=== PATIENT | female | born 1950 | race Caucasian/White ===

== ENCOUNTER 2016-12-12 22:35 | Emergency (ER) | payer MEDICAID ==
--- NOTE | 2016-12-12 23:22 | EDM.PDOC ---
[id number] 4d CHEST PAINS Time Seen by Provider: 12/12/16 23:00 Source of Information: Reports: Patient, Family History Limitations: Reports: No Limitations - History of Present Illness INITIAL COMMENTS - FREE TEXT/NARRATIVE: 66-year-old female with rheumatoid arthritis has developed a substernal chest pain over the past 12-14 hours after activity. It hurts to lay down, sit up, take a deep breath but she has no shortness of breath, nausea or vomiting or radiation of pain. She took a Naprosyn and it didn't help and then she started to worry about cardiac sources of pain and came in to be checked. Her EKG showed no acute findings. 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 (Took a naproxen which didn't help) - Related Data Allergies Allergy/AdvReac Type Severity Reaction Status Date / Time No Known Allergies Allergy Verified 07/13/15 21:58 Home Meds: Home Meds Aspirin 81 mg PO BEDTIME 07/13/15 [History] Cetirizine [ZyrTEC] 10 mg PO DAILY 07/13/15 [History] Pravastatin [Pravachol] 40 mg PO BEDTIME 07/13/15 [History] Methotrexate Sodium [Methotrexate] 7 tab PO WEEKLY 12/12/16 [History] Past Medical History Cardiovascular History: Reports: High Cholesterol Gastrointestinal History: Reports: Diverticulosis Musculoskeletal History: Reports: Arthritis, Osteoarthritis, RA - Past Surgical History Musculoskeletal Surgical History: Reports: Arthroscopic Knee, Other (See Below) Other Musculoskeletal Surgeries/Procedures:: 90 knee surgery left Social & Family History - Tobacco Use Smoking Status *Q: Never Smoker - Caffeine Use Caffeine Use: Reports: Coffee - Recreational Drug Use Recreational Drug Use: No ED ROS GENERAL - Review of Systems Review Of Systems: See Below Constitutional: Denies: Fever, Chills HEENT: Reports: No Symptoms Respiratory: Denies: Shortness of Breath, Cough Cardiovascular: Reports: Chest Pain GI/Abdominal: Denies: Abdominal Pain, Nausea, Vomiting : Reports: No Symptoms Skin: Reports: No Symptoms Psychiatric: Reports: Anxiety ED EXAM, GENERAL - Physical Exam Exam: See Below Exam Limited By: No Limitations General Appearance: Alert, Anxious Eye Exam: Bilateral Eye: Normal Inspection Neck: Normal Inspection Respiratory/Chest: No Respiratory Distress, Lungs Clear, Other (I could reproduce her pain with palpation of the sternum) Cardiovascular: Regular Rate, Rhythm Course - Vital Signs Last Recorded V/S: Last Vital Signs Temp 98.4 F 12/13/16 00:30 Pulse 74 12/13/16 00:30 Resp 16 12/13/16 00:30 BP 128/83 12/13/16 00:30 Pulse Ox 99 12/13/16 00:30 - Orders/Labs/Meds Orders: Active Orders 24 hr Category Date Time Status EKG Documentation Completion [RC] ASDIRECTED Care 12/12/16 23:18 Active Chest 2V [CR] Routine Exams 12/12/16 23:18 Taken EKG 12 Lead [EK] Routine Ther 12/12/16 23:18 Ordered Labs: Laboratory Tests 12/12/16 12/12/16 Range/Units 23:18 23:18 WBC 8.9 (4.5-11.0) K/uL RBC 3.83 (3.30-5.50) M/uL Hgb 13.1 (12.0-15.0) g/dL Hct 37.0 (36.0-48.0) % MCV 97 (80-98) fL MCH 34 H (27-31) pg MCHC 35 (32-36) % Plt Count 248 (150-400) K/uL Neut % (Auto) 61 (36-66) % Lymph % (Auto) 25 (24-44) % Geary % (Auto) 11 H (2-6) % Eos % (Auto) 3 (2-4) % Baso % (Auto) 1 (0-1) % Sodium 140 (140-148) mmol/L Potassium 3.9 (3.6-5.2) mmol/L Chloride 106 (100-108) mmol/L Carbon Dioxide 21 (21-32) mmol/L Anion Gap 12.6 (5.0-14.0) mmol/L BUN 16 (7-18) mg/dL Creatinine 0.9 (0.6-1.0) mg/dL Est Cr Clr Drug Dosing 56.82 mL/min Estimated GFR (MDRD) > 60 (>60) Glucose 113 H (74-106) mg/dL Calcium 9.0 (8.5-10.1) mg/dL Troponin I < 0.017 (0.000-0.056) ng/mL Meds: Medications Discontinued Medications Generic Name Dose Route Start Last Admin Trade Name Kevin PRN Reason Stop Dose Admin Methylprednisolone Sodium Succinate 125 mg 12/13/16 00:21 12/13/16 00:37 Solu-Medrol IVPUSH 12/13/16 00:22 125 mg ONETIME ONE Administration - Re-Assessments/Exams Free Text/Narrative Re-Assessment/Exam: 12/12/16 23:22 EKG was unremarkable, 2 view chest x-ray, troponin, CBC and BMP were obtained. 12/13/16 00:21 All labs were reassuring, troponin was 0. Her pain however was fairly persistent and she started to feel like her hands were swelling as well. I feel this is more likely related to her arthritic disease, is costochondritis and she was given 125 mg of Solu-Medrol IV. Departure - Departure Time of Disposition: 01:02 Disposition: Home, Self-Care 01 Condition: Good Clinical Impression: Costochondritis, Rheumatoid arthritis flare - Discharge Information Instructions: Nonspecific Chest Pain, [id number], Angina Pectoris, Easy-to- Read Referrals: Claire Tsang MD [Primary Care Provider] - Forms: ED Department Discharge Care Plan Goals: Continue with 10 mg of prednisone daily for the next 3 days. Increase activity as tolerated and return any time if worsening or concerns. - My Orders Last 24 Hours: My Active Orders 12/12/16 23:18 EKG Documentation Completion [RC] ASDIRECTED Chest 2V [CR] Routine EKG 12 Lead [EK] Routine - Assessment/Plan Last 24 Hours: My Active Orders 12/12/16 23:18 EKG Documentation Completion [RC] ASDIRECTED Chest 2V [CR] Routine EKG 12 Lead [EK] Routine
[2016-12-13] MEDS ORDERED: methylPREDNISolone Sodium Succinate 125 MG/2 ML SDV IVPUSH ONE (00:21)
[2016-12-13 00:32] VITALS: BP 128/83
--- NOTE | 2016-12-13 08:17 | CR ---
Chest 2V HISTORY: dyspnea COMPARISON: None FINDINGS: Lungs appear clear and normally aerated. Cardiomediastinal silhouette is within normal limits. No va scular redistribution or pleural fluid can be seen. Small anterior osteophyte is noted mid thoracic spine.. IMPRESSION: No acute chest abnormality identified.
== END 2016-12-13 01:04 | disposition home or self-care (01) ==
LOC: JP.ED 22:35
DX: M94.0 Chondrocostal junction syndrome [Tietze] (principal); M06.9 Rheumatoid arthritis, unspecified; E78.00 Pure hypercholesterolemia, unspecified; M19.90 Unspecified osteoarthritis, unspecified site; Z98.890 Other specified postprocedural states; Z79.82 Long term (current) use of aspirin; Z79.899 Other long term (current) drug therapy
CPT/HCPCS: 36415; 71020; 80048; 84484; 85025; 93005; 96374; 99285; J2930

== ENCOUNTER 2021-10-03 12:09 | Emergency (ER) | payer MEDICARE ==
[2021-10-03] MEDS ORDERED: Sodium Chloride 0.9% 10 ML Syringe FLUSH PRN (12:14)
[2021-10-03 12:20] VITALS: BP 139/76; PULSE 86
== END 2021-10-03 13:30 | disposition home or self-care (01) ==
LOC: JP.ED 12:09
DX: R07.89 Other chest pain (principal); E78.5 Hyperlipidemia, unspecified; K20.80 Other esophagitis without bleeding; E78.00 Pure hypercholesterolemia, unspecified; Z79.82 Long term (current) use of aspirin; Z79.899 Other long term (current) drug therapy
CPT/HCPCS: 36415; 80048; 84484; 85025; 93005; 93010; 99283; 99285-25; J3490

== ENCOUNTER 2022-04-10 08:56 | Emergency (ER) | payer MEDICARE ==
[2022-04-10] MEDS ORDERED: Sodium Chloride 0.9% 10 ML Syringe FLUSH PRN (08:58)
[2022-04-10 10:04] LABS: ESTIMATED GFR 69 mL/min (>60)
[2022-04-10 11:15] VITALS: BP 168/90; PULSE 110
[2022-04-10] MEDS ORDERED: Iopamidol 612 MG/ML 100 ML Bottle IV ONE (11:15)
[2022-04-10] MEDS ORDERED: Sodium Chloride 0.9% 100 ML IV ONE (11:15)
== END 2022-04-10 12:47 | disposition home or self-care (01) ==
LOC: JP.ED 08:56
DX: K57.32 Diverticulitis of large intestine without perforation or abscess without bleeding (principal); E78.00 Pure hypercholesterolemia, unspecified; Z88.8 Allergy status to other drugs, medicaments and biological substances; Z79.82 Long term (current) use of aspirin; Z79.899 Other long term (current) drug therapy
CPT/HCPCS: 36415; 74177; 80048; 81001; 85025; 86140; 99284; J3490; Q9967

== ENCOUNTER 2022-05-24 07:01 | Day surgery (SDC) | payer MEDICARE ==
[2022-05-24] MEDS ORDERED: Scopolamine 1.5 MG Transdermal Patch TOP ONE (07:23)
[2022-05-24] MEDS ORDERED: Lactated Ringers 1,000 ML IV SCH (07:45)
[2022-05-24] MEDS ORDERED: Dexamethasone 4 MG/ML SDV ONE (08:04)
[2022-05-24] MEDS ORDERED: Ondansetron 4 MG/2 ML SDV ONE (08:04)
[2022-05-24] MEDS ORDERED: Propofol 200 MG/20 ML SDV ONE ×2 (08:04→08:19)
[2022-05-24 09:48] VITALS: BP 156/86; PULSE 74
== END 2022-05-24 10:06 | disposition home or self-care (01) ==
LOC: JP.SDS 07:01
PROVIDERS: ATTEND Student in an Organized Health Care Education/Training Program
DX: D12.5 Benign neoplasm of sigmoid colon (principal); K29.50 Unspecified chronic gastritis without bleeding; E78.00 Pure hypercholesterolemia, unspecified; K21.00 Gastro-esophageal reflux disease with esophagitis, without bleeding; K57.30 Diverticulosis of large intestine without perforation or abscess without bleeding; Z79.899 Other long term (current) drug therapy; Z88.1 Allergy status to other antibiotic agents
CPT/HCPCS: 87081; 88305; A9270-GY; J1100; J2405; J2704; J7120

== ENCOUNTER 2023-02-24 05:44 | Day surgery (SDC) | payer MEDICARE ==
[2023-02-24] MEDS ORDERED: Meropenem 500 MG in Sodium Chloride 0.9% 50 ML IV ONE ×2 (06:37→07:30)
[2023-02-24] MEDS ORDERED: Dextrose 5%-Lactated Ringers 1,000 ML IV SCH (06:45)
[2023-02-24 06:49] LABS: HEMATOCRIT 40.5 % (34.3-46.0); HEMOGLOBIN 13.4 g/dL (11.2-15.5); MEAN CORPUSCULAR HEMOGLOBIN 30.6 pg (31.6-35.5); MEAN CORPUSCULAR HGB CONC 33.1 g/dL (31.6-35.5); MEAN CORPUSCULAR VOLUME 92.5 fL (81.4-99.0); RED BLOOD CELL COUNT 4.38 M/uL (3.77-5.24); WHITE BLOOD CELL COUNT,WBC 8.5 K/uL (3.2-11.0)
[2023-02-24] MEDS ORDERED: Bupivacaine 0.5%/EPINEPHrine 1:200,000 50 ML MDV ONE (06:50)
[2023-02-24] MEDS ORDERED: Succinylcholine 200 MG/10 ML MDV ONE (06:54)
[2023-02-24] MEDS ORDERED: Neostigmine Methylsulfate 1 MG/ML 5 ML Syringe ONE (06:54)
[2023-02-24] MEDS ORDERED: Propofol 200 MG/20 ML SDV ONE (06:54)
[2023-02-24] MEDS ORDERED: Dexamethasone 4 MG/ML SDV ONE (06:54)
[2023-02-24] MEDS ORDERED: Glycopyrrolate 0.2 MG/ML 5 ML MDV ONE (06:54)
[2023-02-24] MEDS ORDERED: Rocuronium 50 MG/5 ML Vial ONE (06:54)
[2023-02-24] MEDS ORDERED: Ondansetron 4 MG/2 ML SDV ONE (06:54)
[2023-02-24] MEDS ORDERED: fentaNYL 250 MCG/5 ML SDV ONE (06:56)
[2023-02-24] MEDS ORDERED: Meropenem 500 MG SDV ONE (06:57)
[2023-02-24 07:06] LABS: ANION GAP 8.9 mmol/L (5.0-14.0); CALCIUM 9.1 mg/dL (8.5-10.1); EST CRCL DRUG DOSING (CG) 43.3 mL/min; POTASSIUM,K 4.4 mmol/L (3.6-5.2)
[2023-02-24] MEDS ORDERED: Hydrogen Peroxide 3% Top Soln 240 ML Bottle ONE (08:15)
[2023-02-24] MEDS ORDERED: Ondansetron 4 MG/2 ML SDV IVPUSH ONE (09:31)
[2023-02-24] MEDS ORDERED: Lidocaine 1% 2 ML ONE (09:50)
[2023-02-24 11:11] VITALS: BP 143/76; PULSE 72
== END 2023-02-24 11:27 | disposition home or self-care (01) ==
LOC: JP.SDS 05:44
PROVIDERS: ATTEND Surgery
DX: K61.1 Rectal abscess (principal); M10.9 Gout, unspecified; E78.00 Pure hypercholesterolemia, unspecified; M85.80 Other specified disorders of bone density and structure, unspecified site; K21.9 Gastro-esophageal reflux disease without esophagitis; M05.842 Other rheumatoid arthritis with rheumatoid factor of left hand; M05.841 Other rheumatoid arthritis with rheumatoid factor of right hand; M25.551 Pain in right hip; Z79.82 Long term (current) use of aspirin; Z79.899 Other long term (current) drug therapy; Z88.8 Allergy status to other drugs, medicaments and biological substances
CPT/HCPCS: 36415; 46060; 80048; 85027; A9270; J0330; J1100; J2185; J2405; J2704; J2710; J3010; J3490; J7121; 88304

== ENCOUNTER 2024-12-04 17:24 | Emergency (ER) | payer MEDICARE ==
[2024-12-04] MEDS ORDERED: Sodium Chloride 0.9% 10 ML Syringe FLUSH PRN (18:39)
[2024-12-04 18:53] LABS: BASOPHILS ABSOLUTE AUTO 0.07 K/uL (0.00-0.10); BASOPHILS PERCENT AUTO 0.9 % (0.1-1.3); EOSINOPHILS ABSOLUTE AUTO 0.13 K/uL (0.00-0.40); EOSINOPHILS PERCENT AUTO 1.7 % (0.0-5.4); HEMATOCRIT 37.3 % (34.3-46.0); HEMOGLOBIN 12.6 g/dL (11.2-15.5); IMMATURE GRAN ABSOLUTE AUTO 0.03 K/uL (0.00-0.23); IMMATURE GRAN PERCENT AUTO 0.4 % (0.0-0.7); LYMPHOCYTES ABSOLUTE AUTO 1.57 K/uL (0.8-3.3); LYMPHOCYTES PERCENT AUTO 20.9 % (11.4-47.7); MEAN CORPUSCULAR HEMOGLOBIN 31.8 pg (31.6-35.5); MEAN CORPUSCULAR HGB CONC 33.8 g/dL (31.6-35.5); MEAN CORPUSCULAR VOLUME 94.2 fL (81.4-99.0); MONOCYTES ABSOLUTE AUTO 0.97 K/uL (0.20-0.90); MONOCYTES PERCENT AUTO 12.9 % (3.3-12.6); NEUTROPHILS ABSOLUTE AUTO 4.73 K/uL (1.0-7.6); NEUTROPHILS PERCENT AUTO 63.2 % (40.0-78.1); PLATELET COUNT,PLT 191 K/uL (130-375); RED BLOOD CELL COUNT 3.96 M/uL (3.77-5.24); WHITE BLOOD CELL COUNT,WBC 7.5 K/uL (3.2-11.0)
[2024-12-04] MEDS: Ketorolac 15 MG/ML SDV IVPUSH ONE (19:11)
[2024-12-04] MEDS: Ondansetron 4 MG/2 ML SDV IVPUSH ONE (19:14)
[2024-12-04 19:17] LABS: A/G RATIO 0.9 (1.2-2.2); ALANINE AMINOTRANSFERASE,ALT 21 U/L (12-78); ALBUMIN 3.2 g/dL (3.4-5.0); ALKALINE PHOSPHATASE 66 U/L (46-116); ANION GAP 6.8 mmol/L (5.0-14.0); ASPARTATE AMNIOTRANSFERASE,AST 16 U/L (15-37); BILIRUBIN TOTAL 0.3 mg/dL (0.2-1.0); BLOOD UREA NITROGEN,BUN 19 mg/dL (7-18); CALCIUM 9.4 mg/dL (8.5-10.1); CARBON DIOXIDE,CO2 27 mmol/L (21-32); CHLORIDE,CL 106 mmol/L (100-108); CREATININE 1.1 mg/dL (0.6-1.0); EST CRCL DRUG DOSING (CG) 38.24 mL/min; ESTIMATED GFR 53 mL/min (>60); GLUCOSE RANDOM 145 mg/dL (74-106); POTASSIUM,K 3.6 mmol/L (3.6-5.2); PROTEIN TOTAL,TP 6.7 g/dL (6.4-8.2); SODIUM,NA 140 mmol/L (140-148); TROPONIN I HIGH SENSITIVITY 7.3 pg/mL (<=60.3)
[2024-12-04] MEDS: Sodium Chloride 0.9% 100 ML IV SCH (20:42)
[2024-12-04] MEDS: Iopamidol 755 Mg/ML 100 ML Bottle IV SCH (20:42)
[2024-12-04] MEDS: Sodium Chloride 0.9% 1,000 ML IV SCH (21:35)
[2024-12-04 22:43] VITALS: BP 147/83; PULSE 83
== END 2024-12-04 22:40 | disposition home or self-care (01) ==
LOC: JP.ED 17:24
DX: M54.6 Pain in thoracic spine (principal); T18.9XXA Foreign body of alimentary tract, part unspecified, initial encounter; E78.00 Pure hypercholesterolemia, unspecified; Z88.8 Allergy status to other drugs, medicaments and biological substances; Z79.899 Other long term (current) drug therapy
CPT/HCPCS: 36415; 71046; 71275; 80053; 84484; 85025; 85379; 93005; 96361; 96374; 96375; 99285; J1885; J2405; J7030; Q9967